=== PATIENT | male | born 2000 | race African-American/Black ===

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

== ENCOUNTER 2024-01-29 09:02 | Emergency (ER) | payer BC, OTHER | END 2024-01-29 10:23 | disposition home or self-care (01) | LOC: ERS 09:02 | DX: S06.0X0A Concussion without loss of consciousness, initial encounter (principal); S80.212A Abrasion, left knee, initial encounter; V00.148A Other scooter (nonmotorized) accident, initial encounter; Z55.6 Problems related to health literacy | CPT/HCPCS: 96372; J1885 ==